=== PATIENT | male | born 1930 | race Caucasian/White ===

== ENCOUNTER 2016-04-07 10:54 | Emergency (ER) ==
[2016-04-07 11:05] VITALS: BP 121/68; TEMP 97.5; BMI 25.0
--- NOTE | 2016-04-07 12:27 | CT ---
Exam: CT thorax without contrast. Clinical indication: Chest pain after fall. TECHNIQUE: Axial unenhanced CT images of the thorax were obtained followed by coronal and sagittal reformats. There are no prior studies available for comparison. Findings: The visualized portions of the bilateral humeri are intact. The bilateral clavicles are intact. Th e bilateral scapula are intact. There is evidence of prior median sternotomy. The ribs are intact. There is no evidence of thoracic vertebral fracture. The visualized bony stru ctures are unremarkable for the patient's age. There is no evidence of pneumothorax. There is moderate underlying centrilobular emphysema. There is some respiratory motion artifact. There is some patchy ill-defined nodular opacities withi n the left lower lobe. There is a tiny left pleural effusion. There are extensive coronary artery calcifications. There are no enlarged axillary, hilar or mediastinal lymph nodes, by size criteria. There is cholelithiasis. There is a left-sided simple renal cortical cyst. The remainder of the vi sualized portions of the upper abdomen are unremarkable. Impression: 1. No acute thoracic bony injury. 2. Patchy ill-defined opacities within the left lower lobe which could represent pneumonia or aspir ation. 3. Moderate underlying centrilobular emphysema. 4. Extensive coronary artery calcifications. 5. Cholelithiasis.
--- NOTE | 2016-04-07 12:30 | CT ---
EXAM: CT lumbar spine without contrast. HISTORY: Initial presentation for back pain following a fall. COMPARISON: None available. TECHNIQUE: Multiple axial images of the lumbar spine were obtained without intravenous contrast. I mages were reformatted in the sagittal and coronal planes. FINDINGS: The normal curvature and alignment are maintained. Vertebral body heights are normal. T here is mild loss of disc height throughout the lumbar spine. Disc osteophyte formation and facet a rthropathy cause multilevel central canal stenosis, moderate at L4-5, mild-moderate L3-4 and mild el sewhere. These findings also cause multilevel neural foraminal narrowing, moderate from L3-4 to L5- S1. No fracture or subluxation is seen. No paravertebral soft tissue abnormality identified. Ather osclerotic calcifications are present. Probable left renal cortical cyst on axial image 45. Small left pleural effusion and mild left basilar consolidation are incompletely imaged IMPRESSION: 1. No fracture or subluxation. 2. Degenerative changes as described.
--- NOTE | 2016-04-07 13:42 | CT ---
EXAM: CT pelvis HISTORY: Pelvic pain, pubic level, fall. TECHNIQUE: CT pelvis without contrast. Detailed axial sections. Coronal and sagittal re-formation s. FINDINGS: No comparison CT. Bones appear demineralized. No acute fracture or joint dislocation is identified. 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 Degenerative disc and facet disea se of the lower spine is moderately severe with central and neural foraminal stenosis at L4/L5 and L 5/S1. There is a Spigelian like left-sided hernia which contains mostly abdominal fat although a tiny loop of small bowel enters the sac without evidence of strangulation. There is a small to moderate fatt y left inguinal hernia and a tiny fatty right inguinal hernia. Moderate prostate enlargement. Mode rate vascular calcifications. IMPRESSION: 1. No acute fracture or joint dislocation. 2. Bones appear demineralized. 3. Arthritic changes of the hips, sacroiliac joints and lower spine. 4. Lower abdominal hernias as described possibly of no current clinical significance.
--- NOTE | 2016-04-07 14:00 | ED.PDOC ---
General ED Provider: Dr. JESS MITCHELL Chief Complaint: Multiple Trauma Stated Complaint: fall Time Seen by Physician: 11:00 (seen w nursing staff) Information Source: Patient, Family Exam Limitations: No limitations Primary Care Provider: ESTHER LEAL Nursing and Triage Documentation Reviewed and Agree: Yes Trauma/Injury Complaint Exam - Trauma Complaint/Exam Location of Pain or Injury: Reports: Chest, Back, Other (pelvis) Mechanism of Injury: Reports: Fall Onset/Duration: frequent due to parkison disease Symptoms Are: Resolved Initial Severity: Mild Current Severity: Mild Character: Reports: Aching Aggravating: Reports: None Alleviating: Reports: None Associated Signs and Symptoms: Reports: Bruising Related History: Reports: Similar episode Penetrating Injury Risk Factors: Reports: None Related Surgical History: Reports: None Nexus Low Risk Criteria: No post-midline CS tender, No evidence of intoxicat., No Altered LOC, No focal neuro deficit, No distracting injuries Trauma Findings: Absent: Racoon eyes, Hemotympanum, Nasal deformity, Dental tenderness, Dental injury, Dental malocclusion, Neck tenderness, Neck spasm, SubQ Air, Crepitus, Airway obstructed, Labored respirations, Decreased breath sounds, Muffled heart sounds, Weak pulses, Absent pulses, Pelvic tenderness, Pelvic instability Review of Systems - Review Of Systems Constitutional: Reports: No symptoms Eyes: Reports: No symptoms Ears, Nose, Mouth, Throat: Reports: No symptoms Respiratory: Reports: No symptoms Cardiac: Reports: No symptoms GI: Reports: No symptoms : Reports: No symptoms Musculoskeletal: Reports: No symptoms Skin: Reports: No symptoms Neurological: Reports: No symptoms Endocrine: Reports: No symptoms Hematologic/Lymphatic: Reports: No symptoms All Other Systems: Reviewed and Negative Past Medical History - Past Medical History Previously Healthy: No Endocrine: Reports: DM 2 Cardiovascular: Reports: Hypertension, CHF, A-Fib Respiratory: Reports: COPD Hematological: Reports: None Gastrointestinal: Reports: None Genitourinary: Reports: None Neuro/Psych: Reports: None, Parkinson's Musculoskeletal: Reports: None Cancer: Reports: Colon - Surgical History General Surgical History: Reports: Unknown - Family History Family History: Reports: Unknown - Social History Smoking Status: Former smoker Hx Substance Use: No Alcohol Screening: None Physical Exam - Physical Exam Appearance: Well-appearing, No pain distress, Well-nourished Eyes: DONALD, EOMI, Conjunctiva clear ENT: Ears normal, Nose normal, Oropharynx normal Respiratory: Airway patent, Breath sounds clear, Breath sounds equal, Respirations nonlabored Cardiovascular: RRR, Pulses normal, No rub, No murmur GI/: Soft, Nontender, No masses, Bowel sounds normal, No Organomegaly Musculoskeletal: Normal strength, ROM intact, No edema, No calf tenderness Skin: Warm, Dry, Normal color Neurological: Sensation intact, Motor intact, Reflexes intact, Cranial nerves intact, Alert, Oriented Psychiatric: Affect appropriate, Mood appropriate Critical Care Note - Critical Care Note Total Time (mins): 0 Course - Course Hematology/Chemistry: 04/07/16 14:19 Orders, Labs, Meds: Lab Review 04/07/16 14:19 WBC 8.04 RBC 4.00 L Hgb 11.7 L Hct 36.9 L MCV 92.3 MCH 29.3 MCHC 31.7 L RDW Coeff of Lorrie 14.0 Plt Count 234 Immature Gran % (Auto) 0.9 Neut % (Auto) 68.6 Lymph % (Auto) 21.6 Kingfisher % (Auto) 8.3 Eos % (Auto) 0.2 Baso % (Auto) 0.4 Immature Gran # (Auto) 0.1 Neut # 5.5 Lymph # 1.7 Kingfisher # 0.7 Eos # 0.0 Baso # 0.0 Lactic Acid 8.1 Orders Category Date Time Status EKG-(ED ONLY) Stat CARDIO 04/07/16 14:03 Completed BLOOD CULTURE Stat LAB 04/07/16 14:19 Received CBC W/ AUTO DIFF Stat LAB 04/07/16 14:19 Completed COMPREHENSIVE METABOLIC PANEL Stat LAB 04/07/16 14:19 Received CREATINE KINASE Stat LAB 04/07/16 14:19 Received LACTIC ACID Stat LAB 04/07/16 14:19 Completed TROPONIN I Stat LAB 04/07/16 14:19 Received Ceftriaxone Sodium [Rocephin] MEDS 04/07/16 15:07 Stat 1 gm IM ONCE STA Lidocaine HCl/Pf [Lidocaine 1 % Amp 5 ml (Sutures)] MEDS 04/07/16 15:07 Stat 2.1 ml IM ONCE STA CT CHEST W/O CONTRAST Stat RADS 04/07/16 11:[address] LUMBAR SPINE W/O CONTRAST Stat RADS 04/07/16 11:[address] PELVIS W/O CONTRAST Stat RADS 04/07/16 12:39 Completed Medications Discontinued Medications Generic Name Dose Route Start Last Admin Trade Name Freq PRN Reason Stop Dose Admin Ceftriaxone Sodium 1 gm 04/07/16 15:07 Rocephin IM 04/07/16 15:08 ONCE STA Lidocaine HCl 2.1 ml 04/07/16 15:07 Lidocaine 1 % Amp 5 Ml (Sutures) IM 04/07/16 15:08 ONCE STA Vital Signs: Temp Pulse Resp BP Pulse Ox 04/07/16 10:54 97.5 F L 58 L 20 121/68 91 L Departure - Departure Time of Disposition: 14:00 Disposition: HOME SELF-CARE Discharge Problem: Parkinson disease, Pneumonia Fall Qualifiers: Encounter type: initial encounter Qualifier Code: (W19.XXXA) Unspecified fall, initial encounter Instructions: Parkinson Disease (ED) Condition: Good Pt referred to PMD for follow-up: No Additional Instructions: Please call your Family Physician as soon as possible to schedule a follow-up appointment. Prescriptions: Hydrocodone/Acetaminophen [[place] 5-325 Tablet] 1 each PO Q6HR PRN #30 tablet PRN Reason: PAIN Amoxicillin/Potassium Clav [Augmentin 875-125 mg Tab] 1 tab PO Q12HR #14 tablet Allergies/Adverse Reactions: Allergies No Known Allergies Allergy (Unverified 04/07/16 11:06) Home Medications: Ambulatory Orders Amiodarone HCl 200 mg PO DAILY 04/07/16 Amoxicillin/Potassium Clav [Augmentin 875-125 mg Tab] 1 tab PO Q12HR #14 tablet 04/07/16 Apixaban [Eliquis] 2.5 mg PO BID 04/07/16 Atorvastatin Calcium [Lipitor] 10 mg PO DAILY 04/07/16 Calcium Carbonate/Vitamin D3 [Calcium 600 + Vit D 400 Tablet] 1 each PO DAILY Carbidopa/Levodopa [Sinemet 25-100 mg Tablet] 1 each PO TID 04/07/16 Ferrous Sulfate 325 mg PO BID 04/07/16 Glimepiride [Amaryl] 2 mg PO DAILY 04/07/16 Hydrocodone/Acetaminophen [[place] 5-325 Tablet] 1 each PO Q6HR PRN #30 tablet Lisinopril [Zestril] 5 mg PO DAILY 04/07/16 Magnesium Oxide [Magnesium] 400 mg PO DAILY 04/07/16 Metformin HCl [Metformin HCl ER] 500 mg PO BID 04/07/16 Metoprolol Tartrate [Lopressor] 25 mg PO DAILY 04/07/16 Pantoprazole Sodium 40 mg PO DAILY 04/07/16 Ropinirole HCl [Requip] 0.25 mg PO BEDTIME 04/07/16 Sitagliptin Phosphate [Januvia] 100 mg PO DAILY 04/07/16 Tamsulosin HCl [Flomax] 0.4 mg PO DAILY 04/07/16 Tiotropium [place] [Spiriva] 1 cap IH DAILY 04/07/16 Triamcinolone Acetonide [Triamcinolone Acetonide 0.025% Cream] 15 gm TP DIRECTED 04/07/16
[2016-04-07 14:30] LABS: BASOPHILS % (AUTO) 0.4 % (0.0-3.0); EOSINOPHILS % (AUTO) 0.2 % (0.0-7.0); HEMATOCRIT 36.9 % (42.0-52.0); HEMOGLOBIN 11.7 g/dl (14.0-18.0); IMMATURE GRANULOCYTE % (AUTO) 0.9 % (0.0-5.0); LYMPHOCYTES # (AUTO) 1.7 K/uL (0.60-3.4); LYMPHOCYTES % (AUTO) 21.6 (10.0-50.0); MEAN CORPUSCULAR HEMOGLOBIN 29.3 pg (27.0-31.0); MEAN CORPUSCULAR HGB CONC 31.7 (31.8-35.4); MEAN CORPUSCULAR VOLUME 92.3 fl (80.0-94.0); MONOCYTES # (AUTO) 0.7 K/uL (0.4-2.0); MONOCYTES % (AUTO) 8.3 (0-10); NEUTROPHILS # (AUTO) 5.5 K/ul (2.0-6.9); NEUTROPHILS % (AUTO) 68.6; PLATELET COUNT 234 10^3/uL (140-440); WHITE BLOOD COUNT 8.04 K/ul (4.2-10.2)
[2016-04-07 14:52] LABS: ALANINE AMINOTRANSFERASE 13 U/L (12-78); ALBUMIN 3.2 g/dL (3.4-5.0); ALBUMIN/GLOBULIN RATIO 0.82; ALKALINE PHOSPHATASE 90 U/L (56-119); ANION GAP 11.9; ASPARTATE AMINO TRANSFERASE 11 U/L (15-37); BILIRUBIN,TOTAL 1.32 mg/dL (0.00-1.20); BLOOD UREA NITROGEN 16 mg/dL (7-18); CALCIUM 8.9 mg/dL (8.2-10.2); CARBON DIOXIDE 27 mmol/L (23-31); CHLORIDE 104 mmol/L (98-107); CREATINE KINASE 26 U/L; CREATININE 1.25 mg/dL (0.60-1.10); GLUCOSE 148 mg/dL (82-115); POTASSIUM 3.9 mmol/L (3.5-5.1); SODIUM 139 mmol/L (136-145); TOTAL PROTEIN 7.1 g/dL (5.8-8.1)
[2016-04-07] MEDS ORDERED: ROCEPHIN IM STA (15:07)
[2016-04-07] MEDS ORDERED: LIDOCAINE 1 % AMP 5 ML (SUTURES) IM STA (15:07)
== END 2016-04-07 16:08 | disposition home or self-care (01) ==
LOC: ED 10:54
DX: J18.9 Pneumonia, unspecified organism (principal); G20 Parkinson's disease; S29.9XXA Unspecified injury of thorax, initial encounter; S39.92XA Unspecified injury of lower back, initial encounter; S39.93XA Unspecified injury of pelvis, initial encounter; E11.9 Type 2 diabetes mellitus without complications; I10 Essential (primary) hypertension; W19.XXXA Unspecified fall, initial encounter; Z79.899 Other long term (current) drug therapy
CPT/HCPCS: 36415; 80053; 82550; 83605; 84484; 85025; 87040; 93005; 93010; 96372; 99283

== ENCOUNTER 2016-04-13 16:48 | Inpatient (IN) ==
[2016-04-13 17:56] VITALS: BMI 24.9
[2016-04-13 19:04] LABS: BASOPHILS % (AUTO) 0.4 % (0.0-3.0); EOSINOPHILS # (AUTO) 0.1 K/ul (0.0-0.7); EOSINOPHILS % (AUTO) 0.5 % (0.0-7.0); HEMATOCRIT 39.1 % (42.0-52.0); HEMOGLOBIN 12.4 g/dl (14.0-18.0); IMMATURE GRANULOCYTE % (AUTO) 1.1 % (0.0-5.0); LYMPHOCYTES # (AUTO) 1.7 K/uL (0.60-3.4); LYMPHOCYTES % (AUTO) 18.8 (10.0-50.0); MEAN CORPUSCULAR HGB CONC 31.7 (31.8-35.4); MEAN CORPUSCULAR VOLUME 91.4 fl (80.0-94.0); MONOCYTES # (AUTO) 0.8 K/uL (0.4-2.0); MONOCYTES % (AUTO) 8.6 (0-10); NEUTROPHILS # (AUTO) 6.5 K/ul (2.0-6.9); NEUTROPHILS % (AUTO) 70.6; PLATELET COUNT 270 10^3/uL (140-440); RED BLOOD COUNT 4.28 10^6/ul (4.70-6.10); WHITE BLOOD COUNT 9.18 K/ul (4.2-10.2)
--- NOTE | 2016-04-13 19:05 | CT ---
EXAM: CT of the chest without contrast History: Cough. Comparison: Chest CT 04/07/2016 Technique: Multiplanar CT images through the thorax were obtained following administration of IV co ntrast Findings: Heart is mildly enlarged. Coronary artery calcifications. The the ectatic thoracic aort a. Atherosclerotic vascular calcifications of the thoracic aorta. No pathologically enlarged axill alfonzo lymph nodes. No pathologically enlarged mediastinal lymph nodes. Evaluation for hilar lymph no andi is limited due to the lack of contrast administration. There is debris within the bilateral tawanna n stem bronchi and greater on the left. The debris on the left extends into the lower lobe and ling ular bronchial branches. Stable to slightly worsening micronodular infiltrate within the left lower lobe and lingula. Small left pleural effusion also has slightly increased in size. Emphysema again noted. No pneumothorax. Within the visualized upper abdomen, gastric fundal diverticulum again noted. Cholelithiasis. Visu alized osseous structures are unchanged with no acute osseous abnormalities identified. Sternotomy wires. Impression: 1. Stable to slightly worsening micronodular infiltrate within the left lower lobe and lingula. Fo llow-up recommended to document resolution and exclude any underlying neoplastic etiology. 2. There is debris / mucus plugging within the bilateral mainstem bronchi and greater on the left. Debris on the left extends into the lower lobe and lingular bronchial tree branches. 3. Emphysema. 4. Mild cardiomegaly and coronary artery disease. 5. Cholelithiasis. 6. Small left pleural effusion is also slightly increasing.
[2016-04-13 19:20] LABS: ALANINE AMINOTRANSFERASE < 6 U/L (12-78); ALBUMIN 3.2 g/dL (3.4-5.0); ALBUMIN/GLOBULIN RATIO 0.84; ALKALINE PHOSPHATASE 103 U/L (56-119); ASPARTATE AMINO TRANSFERASE 11 U/L (15-37); BILIRUBIN,TOTAL 1.35 mg/dL (0.00-1.20); BLOOD UREA NITROGEN 14 mg/dL (7-18); BUN/CREATININE RATIO 11.96; CALCIUM 8.9 mg/dL (8.2-10.2); CARBON DIOXIDE 27 mmol/L (23-31); CHLORIDE 103 mmol/L (98-107); CHOL/HDL RATIO 3.4 (4.5-6.4); CHOLESTEROL 101 mg/dL (0-200); CREATININE 1.17 mg/dL (0.60-1.10); GLUCOSE 104 mg/dL (82-115); HDL CHOLESTEROL 30 mg/dL (35-60); SODIUM 140 mmol/L (136-145); TRIGLYCERIDES 85 mg/dL (30-150); VLDL CHOLESTEROL 17 mg/dL (2-30)
[2016-04-13] MEDS ORDERED: TRIAMCINOLONE ACETONIDE TP SCH (20:00)
[2016-04-13 20:13] LABS: ABG BASE EXCESS 1 (-2.0-2.0); ABG HCO3 25.9 (22.0-26.0); ABG PCO2 41.6 mmHg (35-45); ABG PH 7.402 (7.35-7.45); ABG TCO2 27 (22.0-28.0)
[2016-04-13] MEDS ORDERED: ZITHROMAX 500 MG in SODIUM CHLORIDE 250 ML IV SCH (20:30)
[2016-04-13] MEDS ORDERED: POTASSIUM CHLORIDE 20 MEQ VIAL-ADDITIVE ONLY 20 MEQ, INFUVITE ADULT 10 ML in SODIUM CHL... IV SCH (20:30)
[2016-04-13] MEDS ORDERED: ROCEPHIN 1 GM in SODIUM CHLORIDE 50 ML IV SCH (20:30)
[2016-04-13] MEDS ORDERED: NON-FORMULARY MEDICATION (Apixaban [Eliquis] 2.5 MG) PO SCH (21:00)
[2016-04-13] MEDS ORDERED: NON-FORMULARY MEDICATION (Metformin Hcl [Metformin Hcl Er] 500 MG) PO SCH ×22 (21:00)
[2016-04-13] MEDS ORDERED: NON-FORMULARY MEDICATION (Ferrous Sulfate [Ferrous Sulfate] 325 MG) PO SCH ×22 (21:00)
[2016-04-13 21:33] LABS: BILIRUBIN,URINE Negative (NEGATIVE); KETONES,URINE Negative (NEGATIVE); LEUKOCYTE ESTERASE ,URINE Negative (NEGATIVE); NITRITE,URINE Negative (NEGATIVE); PROTEIN,URINE Negative (NEGATIVE); URINE, BLOOD Negative (NEGATIVE)
[2016-04-13 21:34] LABS: ADD URINE MICROSCOPIC NO
[2016-04-13] MEDS ORDERED: FERROUS SULFATE ONE (21:50)
[2016-04-13] MEDS ORDERED: GLUCOPHAGE ONE (21:50)
[2016-04-13] MEDS ORDERED: ROCEPHIN ONE (21:50)
[2016-04-13] MEDS ORDERED: ELIQUIS ONE (21:50)
[2016-04-13] MEDS ORDERED: INFUVITE ADULT IV ONE (21:51)
[2016-04-13] MEDS ORDERED: POTASSIUM CHLORIDE 20 MEQ VIAL-ADDITIVE ONLY IV ONE (21:52)
[2016-04-13] MEDS ORDERED: LASIX IVP STA (22:33)
[2016-04-13] MEDS: OXYCODONE PO PRN (22:44)
[2016-04-13] MEDS: POTASSIUM CHLORIDE 20 MEQ VIAL-ADDITIVE ONLY 20 MEQ, INFUVITE ADULT 10 ML in SODIUM CHL... IV SCH (23:41)
[2016-04-14] MEDS: PROTONIX PO SCH (08:52)
[2016-04-14] MEDS: CORDARONE PO SCH (08:52)
[2016-04-14] MEDS: FERROUS SULFATE PO SCH ×2 (08:52→20:29)
[2016-04-14] MEDS: LOPRESSOR PO SCH (08:52)
[2016-04-14] MEDS: FLOMAX PO SCH (08:53)
[2016-04-14] MEDS: SINEMET 25-100 PO SCH ×4 (08:53→23:22)
[2016-04-14] MEDS: LIPITOR PO SCH (08:53)
[2016-04-14] MEDS: JANUVIA PO SCH (08:53)
[2016-04-14] MEDS: MAG-OX PO SCH (08:53)
[2016-04-14] MEDS: ELIQUIS PO SCH ×2 (08:54→20:28)
[2016-04-14] MEDS ORDERED: ZESTRIL PO SCH (09:00)
[2016-04-14] MEDS ORDERED: LOPRESSOR PO SCH (09:00)
[2016-04-14] MEDS ORDERED: GLUCOPHAGE XR 500MG PO SCH (09:00)
[2016-04-14] MEDS ORDERED: JANUVIA PO SCH (09:00)
[2016-04-14] MEDS ORDERED: AMARYL PO SCH (09:00)
--- NOTE | 2016-04-14 09:23 | HP ---
CHIEF COMPLAINT: Shortness of breath, cough, weakness, frequent falls and cognitive dysfunction. SOURCE OF HISTORY: HISTORY OF PRESENT ILLNESS: The patient was seen at the office for the first time today because of coughing , increasing weakness, recurrent falls and recent pneumonia 04/07/16. The patient's examination: He follows verbal commands and not in acute distress but have productive gurgling cough. Lungs has rales in both lung thakkar. Heart is audible with good tones somewhat irregular. Blood sugar at the office by Accu- check was elevated because of cough and history of pneumonia, elevated blood sugar and cognitive dysfunction with recurrent falls probably from Parkinson's disease. This patient is admitted to the hospital for further work up and treatment. PAST PERSONAL HISTORY: Hypertension Diabetes Anemia Micro-gen infarction Congestive heart failure Atrial fibrillation Coronary artery disease, statue post CABG COPD Prostate Carcinoma Parkinson's disease Ureteral dilation Esophageal stricture dilation Migraines Anxiety Ureteral stent x2 FAMILY HISTORY: Brother had Leukemia Father had Prostatic carcinoma Mother Cardiac disease, lung carcinoma and diabetes. SOCIAL HISTORY: The patient is and resides with his . He no longer smokes. No alcoholic beverages. MEDICATIONS: Spiriva one daily Amaryl 2mg daily Ferrous Sulfate 325mg twice a day Lipitor 10mg daily Metoprolol Tartrate 25mg daily Protonix 40mg daily Flomax 0.4mg daily Januvia 100mg PO daily Ropinirole 0.25mg at bedtime Metformin ER 500mg twice a day Magnesium Oxide 400mg daily Sinemet 25-100mg one three times a day Calcium Carbonate/ Vitamin D3 600/400 one daily Amiodarone 200mg daily Apixaban 2.5mg PO twice a day Triamcinolone acetonide 0.025% cream application as directed Hydrocodone/APAP 5-325mg one Q 6 hours PRN Augment 875 prescribed 04/07/16 at the emergency room Q 12 hours x one week Lisinopril 5mg daily ALLERGIES: No known drug allergies REVIEW OF SYSTEMS: CONSTITUTIONAL: The patient is alert and hard of hearing. He follows verbal commands. No fever no chills with some fatigue and had lost weight. GEODETIC COMPUTATOR: The patient has cognitive disorder and had been falling probably because Parkinson's disease. denies any syncopal episode or seizure disorder. VISUAL: He denies any double vision, blurred vision or loss of vision that is transient. AUDITORY: The patient is very hard of hearing and had to shout or increase your volume in order for her him to hear you. No tinnitus. No pain or drainage. RESPIRATORY: The patient had been coughing and persistent to cough. He does have some shortness of breath with exertion. The patient had what appeared to be a pneumonic processes about seven days ago treated with Rocephin and Augmentin. CARDIOVASCULAR: No chest pain. GASTROINTESTINAL: The patient's appetite had been decreased and had lost a significant amount of weight. GENITOURINARY: The patient does have some frequency of urination but denies any pain. MUSCULOSKELETAL: The patient fell 04/07/16 and was in the emergency room because of lumbar pain as well as pelvic pain. The patient had a CT scan of the chest 04/07/[address] of the pelvic bones and Lumbar spine. ENDOCRINE: Negative. INTEGUMENT: Denies any rash or pleuritis. HEMATOLOGIC: No history of prolonged bleeding PSYCHIATRIC: Affect is down. The patient does follow verbal commands. He doesn' t answer questions literally. PHYSICAL EXAMINATION: GENERAL: The patient is a 85 year old male is seen for the first time in my service because of cough that is persistent. He was diagnosed with pneumonia 7 days, cognitive dysfunction, Parkinson's disease, some shortness of breath and elevated blood sugar. The patient also had coronary artery disease and cardiac arrhythmias. VITAL SIGNS: Temperature 97.9, pulse 60, blood pressure 154/62 left and 152/60 right, respiratory rate 20 and pulse ox 87%. He is 5'6", 154 pounds and 9.6 oz. GENERAL APPEARANCE: Is that of one who is chronically ill. HEAD: Unremarkable FACE: Symmetrical and equal with facial weakness. EYES: Pupils equal/reactive to light. About 3mm in size. Conjunctivae somewhat pale. Sclerae not icteric. MOUTH: Dentures both upper and lower. THROAT: No inflammation, tumors or exudate. NECK: No masses. No bruit. No tenderness. No rigidity. CHEST: Symmetrical and equal with a mid-sternotomy scar. LUNGS: Breaths sounds are diminished in both lung thakkar with course rales. HEART: Audible and irregular with good tones. No murmurs. ABDOMEN: Flat, soft with no remarkable tenderness. No guarding, Bowel sounds are active. No masses palpable. EXTERNAL GENITALIA: Not examined RECTAL: Not done LOWER EXTREMITIES: Symmetrical and equal Not pedal pulses will be dictated on the progress notes. UPPER EXTREMITIES: Symmetrical and equal ASSESSMENT: 1. Pneumonitis, rule out aspiration pneumonia 2. Persistent cough 3. COPD by history 4. History of recurrent falls 5. History of coronary artery disease, status post bypass 6. History of myocardial infarction 7. History of congestive heart failure 8. History of atrial fibrillation on medication 9. History of diabetes mellitus 10.History of prostatic carcinoma 11.History of ureteral stone x2 12.History of Parkinson's disease, on medication 13.History of Restless leg syndrome 14.History of ureteral dilatation 15.History of esophageal stricture with dilatation MTDD
[2016-04-14] MEDS: OXYCODONE PO PRN (12:16)
[2016-04-14] MEDS: SPIRIVA IH SCH (12:59)
[2016-04-14] MEDS: MUCINEX PO SCH (20:29)
[2016-04-14] MEDS: ROCEPHIN 1 GM in SODIUM CHLORIDE 100 ML IV SCH (20:30)
--- NOTE | 2016-04-14 20:31 | CT ---
EXAM: CT BRAIN HISTORY: Increasing confusion TECHNIQUE: CT brain without intravenous contrast. 5-mm axial sections with Reformations. COMPARISON: None FINDINGS: There is generalized age-related atrophy. Moderately severe chronic microvascular ischemic change i s suggested. Brain otherwise is unremarkable without distinct evidence of hemorrhage or large vessel distribution recent ischemic infarction. There is no suggestion of acute hydrocephalus or subdural fluid collection. No mass or mass effect. Cranium is within normal limits. Mastoid air cells are aerated. The visualized paranasal sinuses are clear. IMPRESSION: Significant involutional changes. No obvious acute intracranial process.
[2016-04-14] MEDS ORDERED: ZITHROMAX 500 MG in SODIUM CHLORIDE 250 ML IV SCH (21:00)
[2016-04-14] MEDS: VITAMIN B-12 IM SCH (22:28)
[2016-04-14] MEDS ORDERED: COZAAR ONE (23:32)
[2016-04-14] MEDS: COZAAR PO SCH (23:34)
[2016-04-15] MEDS ORDERED: INFUVITE ADULT IV ONE (00:32)
[2016-04-15] MEDS ORDERED: POTASSIUM CHLORIDE 20 MEQ VIAL-ADDITIVE ONLY IV ONE (00:34)
[2016-04-15] MEDS: POTASSIUM CHLORIDE 20 MEQ VIAL-ADDITIVE ONLY 20 MEQ, INFUVITE ADULT 10 ML in SODIUM CHL... IV SCH (01:38)
[2016-04-15 05:18] LABS: BASOPHILS % (AUTO) 0.4 % (0.0-3.0); EOSINOPHILS % (AUTO) 0.1 % (0.0-7.0); HEMATOCRIT 37.3 % (42.0-52.0); HEMOGLOBIN 11.8 g/dl (14.0-18.0); IMMATURE GRANULOCYTE % (AUTO) 0.9 % (0.0-5.0); LYMPHOCYTES # (AUTO) 1.6 K/uL (0.60-3.4); LYMPHOCYTES % (AUTO) 14.6 (10.0-50.0); MEAN CORPUSCULAR HEMOGLOBIN 28.9 pg (27.0-31.0); MEAN CORPUSCULAR HGB CONC 31.6 (31.8-35.4); MEAN CORPUSCULAR VOLUME 91.2 fl (80.0-94.0); MONOCYTES # (AUTO) 0.8 K/uL (0.4-2.0); MONOCYTES % (AUTO) 7.4 (0-10); NEUTROPHILS # (AUTO) 8.1 K/ul (2.0-6.9); NEUTROPHILS % (AUTO) 76.6; PLATELET COUNT 289 10^3/uL (140-440); RED BLOOD COUNT 4.09 10^6/ul (4.70-6.10); WHITE BLOOD COUNT 10.62 K/ul (4.2-10.2)
[2016-04-15 05:45] LABS: ALANINE AMINOTRANSFERASE < 6 U/L (12-78); ALBUMIN 3.1 g/dL (3.4-5.0); ALBUMIN/GLOBULIN RATIO 0.89; ALKALINE PHOSPHATASE 95 U/L (56-119); ANION GAP 13.2; ASPARTATE AMINO TRANSFERASE 12 U/L (15-37); BILIRUBIN,TOTAL 1.52 mg/dL (0.00-1.20); BLOOD UREA NITROGEN 14 mg/dL (7-18); BUN/CREATININE RATIO 13.33; CALCIUM 8.9 mg/dL (8.2-10.2); CARBON DIOXIDE 28 mmol/L (23-31); CHLORIDE 100 mmol/L (98-107); CREATININE 1.05 mg/dL (0.60-1.10); GLUCOSE 61 mg/dL (82-115); POTASSIUM 4.2 mmol/L (3.5-5.1); SODIUM 137 mmol/L (136-145); TOTAL PROTEIN 6.6 g/dL (5.8-8.1)
[2016-04-15] MEDS: MUCINEX PO SCH ×2 (08:07→21:18)
[2016-04-15] MEDS: ELIQUIS PO SCH ×2 (08:07→21:18)
[2016-04-15] MEDS: SPIRIVA IH SCH (08:07)
[2016-04-15] MEDS: PROTONIX PO SCH (08:08)
[2016-04-15] MEDS: JANUVIA PO SCH (08:08)
[2016-04-15] MEDS: VITAMIN B-12 IM SCH (08:08)
[2016-04-15] MEDS: FLOMAX PO SCH (08:08)
[2016-04-15] MEDS: LIPITOR PO SCH (08:09)
[2016-04-15] MEDS: FERROUS SULFATE PO SCH ×2 (08:09→21:17)
[2016-04-15] MEDS: COZAAR PO SCH (08:09)
[2016-04-15] MEDS: SINEMET 25-100 PO SCH ×3 (08:09→21:18)
[2016-04-15] MEDS: LOPRESSOR PO SCH (08:09)
[2016-04-15] MEDS: CORDARONE PO SCH (08:09)
[2016-04-15] MEDS: MAG-OX PO SCH (08:10)
--- NOTE | 2016-04-15 09:37 | PN ---
DATE OF VISIT: 04/14/16 This patient was admitted yesterday. The patient's CT scan did show mucus plugs on both main bronchus right and left side. I had asked the respiratory therapy to do an initial tracheal suction. This patient had a gurgling sound when I examined him at the office. He also had a previous pneumonia that was treated on an outpatient basis. Chest x-ray showed some worsening of the micronodular infiltrate within the left lower lobe and lingula. This patient is receiving Rocephin 1 gram IV daily and Zithromax 500 mg daily. VITAL SIGNS: Today at 2 p.m. showed a temperature 96.4, pulse 60, blood pressure 139/59, respiratory rate 20, oxygen saturation 90 at room air. The patient is alert and responsive and did answer questions with me. He, however, could not remember how old he is. LUNGS: Breath sounds are still diminished with less rales. HEART: Audible and irregular. Cardiology consultation was requested. The Ropinirole was discontinued. His was asking for a CT scan of the abdomen and pelvis with contrast. He had a previous colonoscopy by Dr. Jhaveri some seven years ago and had a polyp removed. He also had a recent endoscopy by Dr. Jhaveri. This patient will be referred back to Dr. Jhaveri. We had a dysphagia study scheduled and hopefully it will be done soon. His TSH is normal. His B12 is normal. I will still give him B12 injections. His BNP was elevated 721 and his IV last night was reduced to 1,000 cc per 24 hours and was given Lasix 20 mg. He will again be given Lasix today at 20 mg, plus a B12 injection. The mentioned that the family had a strong history of malignancy and was tested for markers by Dr. Chaudhari and they were all positive. I don't know what markers were tested. I would look into this and see if I can find those markers. I did find a CEA of 4.9. Normal is 0 to 4.7, but this patient had a history of smoking. That maybe still within normal limits for him. PSA 9.9024. The alkaline phosphatase was high on 07/03/15 136. On the alkaline phosphatase is now 103. His urine back in July 022015 showed 1+ blood and 12-20 RBC. This patient is referred to Physical Therapy for evaluation and also rehabilitation for strengthening if possible. I did mention to the patient's that [facility] will do rehab and will pick him up from home and bring him home after the rehab or after the therapy. She intended for [facility] to [facility], however she wanted to be with him in the [facility]. Her entrance for the [facility] was for rehabilitation to make him stronger. I did tell him that maybe the [facility], [facility] can give him rehab three times a week or [place] can give him on an out patient or [facility] if she would bring him over there. SPENSER
[2016-04-15] MEDS: DECADRON 4 MG/ML SDV IM SCH (10:02)
--- NOTE | 2016-04-15 10:44 | RS.MODBRM ---
Subjective Number of treatment sessions: 1 Date of Evaluation: 04/15/16 Date of Onset/Injury/Change in Status: 04/13/16 Treatment Diagnosis: SOB, weakness, pneumonia Current Level of Function: This is an 85 year old male with a hx of Parkinson's disease and recent episode of pneunomia. Pt has no hx of swallowing disorders, as reported from . However pt reports food sticking in lower esophagus. Pt lives at home with his , where he was independent with all PO intake. Current Diet: regular diet texture with thin liquids. Current Subjective/complaints:: Pt reports food sticking in lower esophagus, which makes him feel "choked." reports pt with slow rate of intake and prolonged meal times. Medical History Comments:: PD, HTN, DM, anemia, CHF, a-fib, CAD s/p CABG, COPD, esopheal stricture dialation multiple times-last surgery approximately two years ago. Hx Home Medications: Pt took medications whole. crushed medications as needed. Patient's Goals: Pt wants to have meat. Food Presented Thin Liquid: cup (Pt aspirated during swallow, with two consecutive swallows. No cough response with aspiration.) Hunter Liquid: cup (Pt cleared liquid with flash penetration, residue in laryngeal vestibule. Residue cleared with multiple swallows. No aspiration with throat clear.) Ground Meat: 1/2 teaspoon (Pt with prolonged mastication, poor bolus manipulation, moderate lingual residue post initial swallow. Second swallow pt cleared residue. No aspiration noted. Liquid wash presented with nectar thick, no aspiration noted.) Oral Phase - Oral Phase Labial Closure: Mild Impairment Bolus Formation: Moderate Impairment Mastication: Mild Impairment Lingual Movement: Mild Impairment (Mild coordination, mild-moderate with base of tongue retraction. CARDIAC REHABILITATION SPECIALIST noted lingual pumping 2x.) A/P Propulsion: Mild Impairment Premature Vallecular Pooling: Coating Oral Residue: Mild Pharyngeal Phase Pharyngeal Response: Moderate Impairment (Pt with no cough or sensory awareness to aspiration.) Base of Tongue: Moderate Impairment (Lingual pumping with regular diet texture.) Epiglottic Movement: Mild Impairment Laryngeal Excursion: Moderate Impairment (Limited movement) Vallecular Residue: Mild Pyriform Residue: Coating Summary and Recommendations - Recommendations PO Diet: Hunter-Thick Liquids Comments:: Pt to have regular diet texture and nectar thick liquids via open cup. Straw not assessed with pt, but pt prefers cup. effortful swallow, throat clear, and multiple swallows cleared residue in valleculae. Minimal residue in vestibule maddox, which pt is at risk to aspirate with entire meal. Pt had no cough response to aspiration episode. Further Therapy Indicated?: Yes Functional Reporting G Codes: Swallowing. Current CK Goal CK Severity Impairment Rationale: Pt on nectar thick liquids and aspirates thin liquids. Short Term Goals Problem: Swallowing Goal #1: Pt to complete lingual exercises with 80% acc. Goal to be met by: 04/22/16 Problem: Swallowing Goal #2: Pt to utilize compensatory swallow strategies with 90% acc. Goal to be met by: 04/22/16 Problem: Swallowing Goal #3: Pt to complete laryngeal exercises with 80% acc. Goal to be met by: 04/22/16 Assisted Goals Problem: Swallowing Goal #1: Pt to safely consume nectar thick liquids with swallow strategies Goal to be met by: 04/24/16 Problem: Swallowing Goal #2: Pt to tolerate regular diet texture with swallow strategies Goal to be met by: 04/24/16 Problem: Swallowing Goal #3: Pt to consume PO intake without overt s/s of aspiration Goal to be met by: 04/24/16 Plan Duration of Treatment: 1 Week Frequency of Treatment: 2-3x a week Anticipated Discharge Destination: Home
--- NOTE | 2016-04-15 11:31 | DI ---
EXAM: Fluoroscopic dysphasia study HISTORY: Difficulty swallowing. COMPARISON: None FINDINGS: Real time fluoroscopic evaluation was performed by Dr. Eitan Sotelo with speech patholog y. Multiple consistencies were administered to patient and swallow evaluation was performed. Patie nt aspirated with thin liquids. Additional consistencies were provided without additional aspiratio n. IMPRESSION: Aspiration with thin liquids. For full details please see note of speech pathology.
[2016-04-15] MEDS: LASIX IVP SCH (12:17)
--- NOTE | 2016-04-15 13:38 | PCM.CONS ---
CONSULTING PROVIDER: Dr. NIC GARCIA ATTENDING PROVIDER: Dr. MERLENE [facility] DATE OF SERVICE: 04/15/16 - CONSULTATION FOLLOWUP SUBJECTIVE: This 85 year old WHITE/ M was hospitalized 04/13/16. The patient was admitted with pneumonia which is being treated with antibiotics and nebs. The patient seems to be doing better with the present management. Consultation is requested for abnormal EKG. The patient has atrial fibrillation. The is present in the room. REVIEW OF SYSTEMS: CONSTITUTIONAL: No night sweats. No fatigue, malaise, lethargy. No fever or chills. HEENT: Eyes: No visual changes. No eye pain. No eye discharge. ENT: No runny nose. No epistaxis. No sinus pain. No odynophagia. No congestion. RESPIRATORY: Cough and congestion. No hemoptysis. CARDIOVASCULAR: No angina symptoms. No CHF symptoms. No atypical chest pain for CAD. No palpitations. No shortness of breath. GASTROINTESTINAL: No abdominal pain. No nausea or vomiting. No diarrhea or constipation. No hematemesis. No hematochezia. GENITOURINARY: No urgency. No frequency. No dysuria. No hematuria. No obstructive symptoms. No discharge. No pain. No significant abnormal bleeding. MUSCULOSKELETAL: No musculoskeletal pain; no joint swelling. NEUROLOGICAL: Awake, oriented to person- spouse. No headache. No neck pain. No syncope. No seizures. No dizziness. PSYCHIATRIC: Not anxious. No depression. No suicidal thoughts. No homicidal thoughts. SKIN: No rash. No lesions. No wounds. ENDOCRINE: No unexplained weight loss. No weight gain. HEMATOLOGIC/LYMPHATIC: No anemia. No purpura. No petechiae. No prolonged or excessive bleeding. No palpable lymph nodes. PHYSICAL EXAMINATION: GENERAL: The patient is awake, oriented to spouse, lying in bed in no distress. VITAL SIGNS: Temperature 97.1 F, Pulse 54, Respiratory Rate 20, BP 132/66, Pulse Ox 95% HEENT: Head normocephalic, atraumatic. Eyes: Extraocular muscles are intact. Pupils are equal, round and reactive to light and accommodation. Ears: No lesions. Nose appeared normal. Throat: No exudate or erythema. NECK: Supple. No JVD, no carotid bruit. No lymphadenopathy or thyromegaly. LUNGS: Decreased breath sounds. Clear to auscultation. Percussion note normal. Chest symmetrical. HEART: S1, S2, no S3. No murmurs. No cyanosis or clubbing. No ascites. Pulses: Dorsalis pedis and posterior tibial pulses +1 to +2 both sides. ABDOMEN: Soft. Non-tender. Bowel sounds active. No CVA tenderness. No mass felt. EXTREMITIES: No pedal edema. Full range of motion of all extremities, equal. NEUROLOGIC: No focal deficit. Cranial nerves II through XII are grossly intact. No headache, no double vision or headache. SKIN: Not dry. Intact. Turgor-normal. LYMPHATIC: No palpable lymph nodes/no lymphedema. MUSCULOSKELETAL: Normal joints with no swelling. Muscle tone is normal. LAB REVIEW: 04/15/16 05:15 04/15/16 05:15 04/15/16 05:15: WBC 10.62 H, RBC 4.09 L, Hgb 11.8 L, Hct 37.3 L, MCV 91.2, MCH 28.9, MCHC 31.6 L, RDW Coeff of Lorrie 13.9, Plt Count 289, Immature Gran % (Auto) 0.9, Neut % (Auto) 76.6, Lymph % (Auto) 14.6, [place] % (Auto) 7.4, Eos % (Auto) 0.1, Baso % (Auto) 0.4, Immature Gran # (Auto) 0.1, Neut # 8.1 H, Lymph # 1.6, [place] # 0.8, Eos # 0.0, Baso # 0.0, Sodium 137, Potassium 4.2, Chloride 100, Carbon Dioxide 28, Anion Gap 13.2, BUN 14, Creatinine 1.05, Estimated GFR (MDRD ) 67.00, BUN/Creatinine Ratio 13.33, Glucose 61 L, Calcium 8.9, Total Bilirubin 1.52 H, AST 12 L, ALT < 6 L, Alkaline Phosphatase 95, B-Natriuretic Peptide 767 H, Total Protein 6.6, Albumin 3.1 L, Globulin 3.5, Albumin/Globulin Ratio 0.89 ASSESSMENT: 1. Atrial fibrillation with normal ventricular response. No acute changes on EKG or cardiac markers. 2. Pneumonia treated with antibiotics responding well. 3. Diabetes mellitus, well-controlled. 4. Anemia. RECOMMENDATIONS/PLAN: 1. Echocardiogram today to evaluate LV function and valvular structures. 2. Decadron 1 cc now and 1 cc tomorrow a.m. 3. The patient's BNP is 767 but no evidence of CHF. I agree with present management. 4. Dysphagia study today. Plan and coordination of the patient's care discussed in the presence of Regional Transportation Manager and Nurse. CONDITION: Stable SCRIBED BY: BREENICE SOFIA Finishing Machine Operator Automatic scribed while in presence of service performed by Dr. NIC GARCIA on 04/15/16 (0800)
[2016-04-15] MEDS ORDERED: ATARAX PO STA ×2 (16:27)
[2016-04-15] MEDS: ROCEPHIN 1 GM in SODIUM CHLORIDE 100 ML IV SCH (21:44)
[2016-04-16] MEDS ORDERED: INFUVITE ADULT IV ONE (00:30)
[2016-04-16] MEDS ORDERED: POTASSIUM CHLORIDE 20 MEQ VIAL-ADDITIVE ONLY IV ONE (00:31)
[2016-04-16] MEDS: POTASSIUM CHLORIDE 20 MEQ VIAL-ADDITIVE ONLY 20 MEQ, INFUVITE ADULT 10 ML in SODIUM CHL... IV SCH (00:40)
[2016-04-16] MEDS: LASIX IVP SCH (06:32)
[2016-04-16] MEDS: OXYCODONE PO PRN (06:59)
[2016-04-16] MEDS: SPIRIVA IH SCH (09:16)
[2016-04-16] MEDS: JANUVIA PO SCH (09:17)
[2016-04-16] MEDS: MUCINEX PO SCH (09:17)
[2016-04-16] MEDS: ELIQUIS PO SCH (09:17)
[2016-04-16] MEDS: PROTONIX PO SCH (09:18)
[2016-04-16] MEDS: LOPRESSOR PO SCH (09:18)
[2016-04-16] MEDS: FLOMAX PO SCH (09:18)
[2016-04-16] MEDS: CORDARONE PO SCH (09:18)
[2016-04-16] MEDS: COZAAR PO SCH (09:18)
[2016-04-16] MEDS: LIPITOR PO SCH (09:19)
[2016-04-16] MEDS: FERROUS SULFATE PO SCH (09:19)
[2016-04-16] MEDS: VITAMIN B-12 IM SCH (09:19)
[2016-04-16] MEDS: MAG-OX PO SCH (09:19)
[2016-04-16] MEDS: SINEMET 25-100 PO SCH ×2 (09:19→16:03)
[2016-04-16] MEDS: DECADRON 4 MG/ML SDV IM SCH (09:20)
[2016-04-16 10:28] VITALS: BP 97/50; TEMP 97.4
--- NOTE | 2016-04-16 11:07 | CONS ---
DATE OF CONSULTATION: 04/15/16 REASON FOR CONSULTATION: Evaluation for arrhythmias HISTORY OF PRESENT ILLNESS: The patient is an 85 year old white male was hospitalized by Dr. Roman from the clinic with history of pneumonia and diabetes. The patient has been treated with IV antibiotics and has responded well. His EKG telemetry strips reviewed and the patient has atrial fibrillation with normal ventricular response, atrial flutter. The patient is laying flat with no distress. Chest x-ray showing coronary artery disease, mild cardiomyopathy. REVIEW OF SYSTEMS: CONSTITUTIONAL: No night sweats. Fatigue. No fever or chills. HEENT: Eyes: No visual changes. No eye pain. No eye discharge. ENT: No runny nose. No epistaxis. No sinus pain. No sore throat. No odynophagia. No ear pain. No congestion. RESPIRATORY: Cough with lose clear mucus, no congestion. No hemoptysis. CARDIOVASCULAR: No angina symptoms. No CHF symptoms. No atypical chest pain for CAD. No palpitations. No shortness of breath. GASTROINTESTINAL: No abdominal pain. No nausea or vomiting. No diarrhea or constipation. No hematemesis. No hematochezia. GENITOURINARY: No urgency. Frequency. No dysuria. No hematuria. No obstructive symptoms. No discharge. No pain. No significant abnormal bleeding. Urinary incontinence at times. MUSCULOSKELETAL: No musculoskeletal pain. No joint swelling. Lumbar pain. NEUROLOGICAL: No headache. No neck pain. No syncope. No seizures. No dizziness. PSYCHIATRIC: Anxious. No depression. No suicidal thoughts. No homicidal thoughts. SKIN: Warm/dry, No rash. No lesions. No wounds. ENDOCRINE: Weight loss. No weight gain. HEMATOLOGIC/LYMPHATIC: No anemia. No purpura. No petechiae. No prolonged or excessive bleeding. No palpable lymph nodes. MEDICATIONS: Amiodarone Eliquis Lipitor Calcium with D Sinemet Ferrous Sulfate Amaryl [place] Zestril Mag Oxide Metformin Lopressor Protonix Januvia Flomax Spiriva ALLERGIES: No known drug allergies PAST MEDICAL HISTORY/PAST SURGICAL HISTORY: Hypertension Diabetes Anemia Congestive heart failure Atrial fibrillation Coronary artery disease Status post CABG COPD Prostate cancer Parkinson's disease Esophageal stricture with dilation (numerous times- Dr. Jhaveri) Ureteral stent Anxiety SOCIAL/PERSONAL/FAMILY HISTORY: No smoking. No alcohol. . Family History: Sister Leukemia, Father Prostate cancer, Mother Cardiac, diabetes mellitus and lung cancer. PHYSICAL EXAMINATION: GENERAL: The patient is confused but alert. VITAL SIGNS: Pulse 54, blood pressure 132/66 and pulse ox 95% on 2 liters. HEENT: Head normocephalic, atraumatic. Eyes: Extraocular muscles are intact. Pupils are equal, round and reactive to light and accommodation. Ears: No lesions. Nose appeared normal. Throat: No exudate or erythema. NECK: Supple. No JVD, no carotid bruit. No lymphadenopathy or thyromegaly. LUNGS: Decreased breath sounds but clear to auscultation. Percussion note normal. Chest symmetrical. HEART: S1, S2, no S3. No murmurs. No cyanosis or clubbing. No ascites. Pulses: Dorsalis pedis and posterior tibial pulses +1. ABDOMEN: Soft. Nontender. Bowel sounds active. No CVA tenderness. No mass felt. EXTREMITIES: No edema. Full range of motion of all extremities, equal. NEUROLOGIC: No focal deficit. Cranial nerves II through XII are grossly intact. No headache, no double vision or headache. SKIN: Not dry. Intact. Turgor - normal. LYMPHATIC: No palpable lymph nodes/no lymphedema. MUSCULOSKELETAL: Normal joints with no swelling. Muscle tone is normal. LABS: Chest CT- stable to slightly worsening micronodular infiltrate LLL and lingula cardiomegaly, coronary artery disease and emphysema. EKG atrial fibrillation. BNP 721, WBC 9.8 and A1c 6.1. ASSESSMENT: 1. Atrial fibrillation- normal v-response 2. CABG 3. COPD 4. Pneumonia 5. Dementia PLAN: 1. Echocardiogram 2. 1cc Decadron IM today 3. 1cc Decadron IM AM 4. No arrhythmias like 2nd degree Av Block 5. Atrial fibrillation on telemetry 6. Care discussed with attending. Thanks for referral SPENSER
--- NOTE | 2016-04-16 14:44 | DI ---
EXAM: Single frontal view of the chest HISTORY: Cough. COMPARISON: CT chest 04/13/2016 FINDINGS: Cardiomediastinal silhouette is unchanged and mildly enlarged with intact sternotomy wires and aortic atherosclerotic disease. There is no pneumothorax. There is minimal blunting of the le ft costophrenic angle with minimal nodular ground-glass. Findings are consistent with recent CT gisella [address]. The right lung appears clear. The osseous structures are unremarkable. IMPRESSION: Small left effusion and adjacent nodular ground-glass suggestive of small airways infec tion/inflammation. This is similar in appearance to director cardiac image on CT chest 04/13/2016.
--- NOTE | 2016-04-17 10:08 | CONS ---
DATE OF SERVICE: 04/16/16 CONSULT FOLLOWUP SUBJECTIVE: The patient is an 85 year old white male hospitalized with pneumonia and diabetes. I was consulted because of the patient's rhythm and there was some question of 2nd degree AV block. The patient's rhythm strips showed atrial fibrillation with normal ventricular response in fact in the slow side. The patient's pneumonia is being treated and seems to be resolving. The is in the room and she is happy with his progress. REVIEW OF SYSTEMS: CONSTITUTIONAL: No night sweats. No fatigue, malaise, lethargy. No fever or chills. HEENT: Eyes: No visual changes. No eye pain. No eye discharge. ENT: No runny nose. No epistaxis. No sinus pain. No sore throat. No odynophagia. No ear pain. No congestion. RESPIRATORY: No cough, no congestion. No hemoptysis. CARDIOVASCULAR: No angina symptoms. No CHF symptoms. No atypical chest pain for CAD. No palpitations. No shortness of breath. GASTROINTESTINAL: No abdominal pain. No nausea or vomiting. No diarrhea or constipation. No hematemesis. No hematochezia. GENITOURINARY: No urgency. No frequency. No dysuria. No hematuria. No obstructive symptoms. No discharge. No pain. No significant abnormal bleeding. MUSCULOSKELETAL: No musculoskeletal pain. No joint swelling. No arthritis. NEUROLOGICAL: No headache. No neck pain. No syncope. No seizures. No dizziness. PSYCHIATRIC: Not anxious. No depression. No suicidal thoughts. No homicidal thoughts. SKIN: No rash. No lesions. No wounds. ENDOCRINE: No unexplained weight loss. No weight gain. HEMATOLOGIC/LYMPHATIC: No anemia. No purpura. No petechiae. No prolonged or excessive bleeding. No palpable lymph nodes. PHYSICAL EXAMINATION: GENERAL: The patient is confused. VITAL SIGNS: Temperature 96.9, pulse 52, respiratory 20, blood pressure 154/67 and pulse ox 96% HEENT: Head normocephalic, atraumatic. Eyes: Extraocular muscles are intact. Pupils are equal, round and reactive to light and accommodation. Ears: No lesions. Nose appeared normal. Throat: No exudate or erythema. NECK: Supple. No JVD, no carotid bruit. No lymphadenopathy or thyromegaly. LUNGS: Decreased breath sounds but clear to auscultation. Percussion note normal. Chest symmetrical. HEART: S1, S2, no S3. No murmurs. No cyanosis or clubbing. No ascites. Pulses: Dorsalis pedis and posterior tibial pulses +1 to +2 both sides. ABDOMEN: Soft. Nontender. Bowel sounds active. No CVA tenderness. No mass felt. EXTREMITIES: No edema. Full range of motion of all extremities, equal. NEUROLOGIC: No focal deficit. Cranial nerves II through XII are grossly intact. No headache, no double vision or headache. SKIN: Not dry. Intact. Turgor - normal. LYMPHATIC: No palpable lymph nodes/no lymphedema. MUSCULOSKELETAL: Normal joints with no swelling. Muscle tone is normal. LABS: hgb 11.8, hct 37, WBC 10,600 normal differential, creatinine 1, BUN 14, potassium 4.2, BNP 767 ASSESSMENT: 1. Atrial fibrillation with controlled ventricular response 2. History of CHF 3. Chronic lung disease 4. Pneumonia RECOMMENDATIONS: 1. Continue and agreed with the present management for pneumonia 2. Continue Amiodarone, Eliquis, Lisinopril and Metformin and Metoprolol CONDITION: Stable MTDD
--- NOTE | 2016-04-17 10:09 | PN ---
04/13/16: Level 5 04/14/16: Intermediate MTDD
--- NOTE | 2016-04-17 13:31 | DS ---
PATIENT IDENTIFICATION: 85 year old male who was seen at the office by me on 04/13/2016 for the first time. This patient was a new patient to establish care. The patient's general appearance appears to be sick. Physical examination revealed the patient has cognitive problem, somewhat restless. The lungs had coarse rales in both sides in the lower half with diminished breath sounds. The heart is irregular with good tones. This patient had a history of atrial fibrillation. The patient's past history consisted of hypertension, diabetes, anemia, myocardial infarction, congestive heart failure, atrial fibrillation, coronary artery disease, status post bypass, COPD, history of prostatic carcinoma, Parkinson's disease, urethral dilatation, esophageal stricture dilatation, history of migraine, history of anxiety and history of ureteral stent. HOSPITAL COURSE: The patient, while in the hospital, had the following work- up. CBC times two which showed mild to moderate anemia. Arterial blood gases with FIO2 21, PO2 62, PCO2 41, pH 7.402, oxygen saturation 91, bicarbonate 25.9 , total CO2 27. The electrolytes were normal times two and the GFR is 60 and 67. Initial blood sugar on 04/13/16 was 104 and on 04/15/16 was 61. The patient's medication, Amaryl, was discontinued, as well as Metformin. The patient also was on Januvia at 100 mg for the diabetes. He is on Eliquis 2.5 mg for the atrial fibrillation twice a day. The patient's imaging studies, a CT without contrast showed stable to slightly worsening micronodular infiltrate within the left lower lobe and lingula. Follow up recommended in the next several months. Debris or mucus plugging in the bilateral main bronchi greater on the left. Emphysema, mild cardiomegaly, cholelithiasis and small pleural effusion. A head CT was done, since the was concerned about the patient having a stroke because of his behavior. The CT did not show any acute intracranial pathology. The radiologist felt that the patient has a significant involutional changes to his brain. A chest x-ray done today showed no significant change from the time he was admitted on 04/13/2016. This patient received Rocephin 1 gram IV daily and Zithromax 500 mg daily for three days. The patient was afebrile and remained afebrile throughout the hospital stay. The blood pressure on admission was slightly higher at 154/62 left, 152/ 60 right and the blood pressure had been fluctuating as high as 174/102 on 04/14, but did go down to 117/56 on the same day and the blood pressure on 04/16 in the community health navigator hours, 6 o'clock, was 154/67 and at 10 o'clock was down to 97/50. No further readings at this time. The patient's oxygen saturation is 92 at 2 Liters. The patient at discharge is alert, ambulatory with movement of extremities. LUNGS: Breath sounds are diminished with some rales at both bases. HEART: Audible and irregular. ABDOMEN: Nontender. This patient was going to be discharge to [facility] to receive treatment for the aspiration. This patient was tested and indeed the patient does aspirate with thin liquids. The diet will be according to what was advised. This patient was seen by Dr. Velasquez, Welder Fitter, because of atrial fibrillation. He recommended an echocardiogram, as well as Decadron 4 mg IM for two days. The BNP was slightly higher, but no evidence of congestive heart failure. RECOMMENDATIONS: 1. Diet-Lorane thick liquids. The patient can have regular diet texture and nectar thick liquids via open cup. Lingual exercises to be done three times a week. This will be accomplished while at the senior living. 2. This patient is going to be discharged to [facility]. The patient's was agreeable. There was no place for them at [facility]. 3. The following medications or instructions are: 1. Diet as recommended, regular diet with thickened nectar liquids. 2. Sinemet 25/100 one tablet three times a day. 3. Flomax 0.4 mg daily. 4. Amiodarone 200 mg daily. 5. Eliquis 2.5 mg twice daily. 6. Lipitor 10 mg daily. We will look into this at age 85 whether it would be helpful to him. 7. Lopressor 45 mg daily will be given at 12.5 twice a day, since Lopressor Tartrate is short acting. 8. Mag Ox 400 mg daily. 9. Protonix 40 mg daily before a meal. 10. Spiriva one cap daily inhalation. 11. Mucinex LA 1200 mg twice daily. 12. Losartan 25 mg twice daily. 13. Vitamin B12 1,000 mcg IM weekly. 14. Lasix 20 mg early a.m. before breakfast on an empty stomach. 15. Omnicef 300 mg twice a day for 5 days. 4. Fasting Renal panel weekly times four weeks. If the blood sugar remains reasonable that no resumption of the diabetic medications will be given. FINAL DIAGNOSES: 1. LEFT LOWER LOBE PNEUMONITIS 2. DEBRIS BILATERAL MAIN BRONCHUS 3. CHOLELITHIASIS 4. SENILE DEMENTIA 5. PARKINSON'S DISEASE 6. DIABETES MELLITUS TYPE II, QUESTIONABLE 7. ATRIAL FIBRILLATION ON MEDICATION 8. HISTORY OF CONGESTIVE HEART FAILURE 9. HISTORY OF CORONARY ARTERY DISEASE, STATUS POST BYPASS 10. HISTORY OF PROSTATIC CARCINOMA 11. HISTORY OF ESOPHAGEAL STRICTURE, DILATATION 12. HISTORY OF URETERAL DILATATION WITH STENT TIMES TWO 13. HYPERTENSION, CONTROLLED. PROGNOSIS: Guarded to poor. MTDD
--- NOTE | 2016-04-20 07:26 | ECHO2D ---
Date of Exam: 04/16/2016 Ordering Physician: DR. MORALES - [facility] Reason for Echo: CORONARY ARTERY DISEASE, CARDIOMEGALY M-Mode Normal Adult Results LV Dimensions Normal Adult Results AoV Opening excursions >1.6 >1.6 LVEDD-base- 3.5-5.8 5.3 Ao root dimensions 2.0-3.7 3.6 LVESD-base- 3.1-4.6 L. Atrium dimensions 1.9-3.8 4.5 Post. Wall thickness 0.8-1.1 1.1 IV septum (thickness) 0.7-1.2 1.2 Post. Wall excursion 0.72-1.3 NORMAL Septal motion Systolic motion R. Ventricular cavity 1.5-2.0 3.0 LVEF 60% 50% Paradoxical septal wall motion YES 2-D :MILD PARADOXICAL SEPTAN WALL MOTION, NO EFFUSION, NO THROMBUS, VALVES, NORMAL, ENLARGED LEFT ATRIAL CAVITY, ENLARGED RIGHT VENTRICLE CAVITY M-MODE: MV: NORMAL AV: NORMAL TV: NORMAL PV: CHAMBER SIZE: ENLARGED RIGHT VENTRICLE AND LEFT ATRIAL CAVITIES WALL MOTION: PARADOXICAL SEPTAL MOTION PERICARDIUM: NORMAL INTERPRETATION: 1. BORDERLINE LEFT VENTRICULAR HYPERTROPHY 2. ENLARGED LEFT ATRIAL AND RIGHT VENTRICLE CAVITIES 3. PARADOXICAL SEPTAL WALL MOTION 4. EVIDENCE OF PULMONARY HYPERTENSION MTDD
--- NOTE | 2016-06-03 11:45 | PN ---
DATE OF VISIT: 04/15/2016 The patient, today, at 6 p.m. on 04/15/2016 showed a temperature of 97.8, pulse of 65, blood pressure 126/66, respiratory rate 18, oxygen saturation 98 at 2 liters per nasal oxygen. The patient does have atrial fibrillation. This patient was admitted to the hospital because of cough and gurgling with rales in both lung thakkar. He does follow verbal commands and does not seem to be in acute distress and no cyanosis. HEART: The heart sounds are of good volume and irregular. Blood sugar was elevated at the office. This patient was admitted because of cough and rales with a history of pneumonia, recent. He also had fallen several times. The patient's head CT on 04/14/2016 showed no acute intracranial processes, but did show significant involutional changes, atrophy. Labs done on 04/15/16 showed a WBC slightly elevated at 10,620, hemoglobin and hematocrit is below normal at 11.8 and 37.3 respectively. Differential with no bands. Arterial blood gases on admission showed moderate hypoxemia. Chemistry showed a slightly increased BNP 767 from 721 on admission. 25 hydroxy vitamin D is below normal at 14.5 and PSA was 2.7. The patient was treated with Zithromax 500 mg IV daily, as well as Ceftriaxone 1 gram IV daily. Home medications were continued consisting of Ferrous sulfate , Metformin, Sinemet 25/100, Eliquis. Lasix 20 mg IV was given on 04/13/2016 because of the elevated BNP, as well as bilateral rales. Amiodarone, Lipitor, Metoprolol, Pantoprazole, Spiriva were continued. He also was placed on Losartan 50 mg daily, as well as B12 injection 1 cc daily IM. The patient seemed to be feeling better today and again he was afebrile ever since admission. The chest CT on admission showed worsening micronodular infiltrate within the left lower lobe and lingula. Also some mucus plugs. This patient may have some aspiration from time to time. He also was noted to have cholelithiasis during that examination. The patient seemed to have improved and most likely will be continued on these medications. The patient had an echocardiogram done by the edi consultant showing mild paradoxical septal wall motion, no effusion, no thrombi in the valves. Ejection fraction is 50%. There is some evidence of pulmonary hypertension. Borderline left ventricular hypertrophy and enlarged left atrial and right ventricular cavities. The patient was seen by Dr. Velasquez, [employer] in consultation. He did order Decadron at the time he saw him on the , as well as ordering an echocardiogram. CONDITION: Stable. PROGNOSIS: Poor. MTDD
== END 2016-04-16 18:05 | DRG 194 ==
LOC: MEDSURG A 16:48
PROVIDERS: ADMIT General Practice; ATTEND General Practice
DX: J18.9 Pneumonia, unspecified organism (principal); T17.590A Other foreign object in bronchus causing asphyxiation, initial encounter; J90 Pleural effusion, not elsewhere classified; I51.7 Cardiomegaly; K80.20 Calculus of gallbladder without cholecystitis without obstruction; F03.90 Unspecified dementia, unspecified severity, without behavioral disturbance, psychotic disturbance, mood disturbance, and anxiety; G20 Parkinson's disease; K22.2 Esophageal obstruction; E11.9 Type 2 diabetes mellitus without complications; I48.91 Unspecified atrial fibrillation; I10 Essential (primary) hypertension; D64.9 Anemia, unspecified; I50.9 Heart failure, unspecified; I25.10 Atherosclerotic heart disease of native coronary artery without angina pectoris; J43.9 Emphysema, unspecified; R29.6 Repeated falls; Z95.1 Presence of aortocoronary bypass graft; Z87.891 Personal history of nicotine dependence; Z79.01 Long term (current) use of anticoagulants; Z79.899 Other long term (current) drug therapy; Z85.46 Personal history of malignant neoplasm of prostate
CPT/HCPCS: 36415; 80053; 80061; 81001; 82150; 82607; 82652; 82803; 82962; 83036; 83690; 83880; 84153; 84443; 85025; 87070; 93005; 93010; 99223; 99232; 99239

== ENCOUNTER 2016-05-02 14:50 | Emergency (ER) ==
[2016-05-02 14:59] VITALS: BP 142/70; TEMP 97.2; BMI 20.1
[2016-05-02] MEDS ORDERED: DUONEB NEB STA (15:12)
--- NOTE | 2016-05-02 15:13 | ED.PDOC ---
General ED Provider: Dr. THEO CHOPRA Chief Complaint: Non-specific Complaint Stated Complaint: patient was sent from retirement with increased congestion and thick green sputum and low grade temp. patient was sent to see if he aspirated. patient's states that patient got choked at breakfast this morning on one bite and has coughed clear sputum since. states when he gets choked he doesn't eat for 2-3 days. she also states that patient has aspirated one time before. Time Seen by Physician: 15:11 Mode of Arrival: Wheelchair Information Source: Patient, Family, Residential Exam Limitations: No limitations [facility] and Triage Documentation Reviewed and Agree: Yes Review of Systems - Review Of Systems Constitutional: Reports: Loss of appetite Eyes: Reports: No symptoms Ears, Nose, Mouth, Throat: Reports: No symptoms (but decreased hearing ) Respiratory: Reports: Cough, Short of air GI: Reports: Difficulty swallowing : Reports: No symptoms Musculoskeletal: Reports: No symptoms Skin: Reports: No symptoms Neurological: Reports: Anxiety, Other (tremors, [place] ) Endocrine: Reports: No symptoms Hematologic/Lymphatic: Reports: No symptoms All Other Systems: Reviewed and Negative Past Medical History - Past Medical History Previously Healthy: No Endocrine: Reports: DM 2 Cardiovascular: Reports: Hypertension, CHF, A-Fib Respiratory: Reports: COPD Hematological: Reports: None Gastrointestinal: Reports: None Genitourinary: Reports: None Neuro/Psych: Reports: Parkinson's Musculoskeletal: Reports: None Cancer: Reports: Colon Other Pertinent Past Medical History: 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 - Surgical History General Surgical History: Reports: CABG - Family History Family History: Reports: Unknown - Social History Smoking Status: Former smoker Hx Substance Use: No Alcohol Screening: None Physical Exam - Physical Exam Appearance: Ill-appearing Ill-appearing: Mild Respiratory: Breath sounds diminished Cardiovascular: RRR, Pulses normal, No rub, No murmur GI/: Soft, Nontender, No masses, Bowel sounds normal, No Organomegaly Musculoskeletal: Normal strength, ROM intact, No edema, No calf tenderness Skin: Warm, Dry, Normal color Neurological: Alert (tremors ) Psychiatric: Anxious Interpretation - Radiology Interpretation Radiology Interpretation By: Radiologist Radiology Results: Negative Exam Interpreted: CT Scan (improving areation on the left lower lobe ) Physician Notification - Case Discussed Physician Notified: Dr Roman Time of Notification: 17:00 (Does not meet criteria for admission. Ct showe infiltrate better. lungs clear and stat normal. ) Critical Care Note - Critical Care Note Total Time (mins): 0 Course - Course Hematology/Chemistry: 05/02/16 15:25 05/02/16 15:25 Orders, Labs, Meds: Lab Review 05/02/16 05/02/16 15:12 15:25 WBC 11.83 H RBC 4.53 L Hgb 12.7 L Hct 40.2 L MCV 88.7 MCH 28.0 MCHC 31.6 L RDW Coeff of Lorrie 14.6 Plt Count 216 Immature Gran % (Auto) 1.0 Neut % (Auto) 81.4 Lymph % (Auto) 8.4 L Frederick % (Auto) 8.6 Eos % (Auto) 0.3 Baso % (Auto) 0.3 Immature Gran # (Auto) 0.1 Neut # 9.6 H Lymph # 1.0 Frederick # 1.0 Eos # 0.0 Baso # 0.0 Puncture Site R brach O2 Saturation 94.0 L ABG pH 7.43 ABG pCO2 43.0 ABG pO2 70.0 L ABG HCO3 29 H ABG Total CO2 30 H ABG Base Excess 5 H Jerad Test + FiO2 % 21.0 Sodium 135 L Potassium 4.5 Chloride 94 L Carbon Dioxide 29 Anion Gap 16.5 BUN 25 H Creatinine 1.45 H Estimated GFR (MDRD) 46.00 BUN/Creatinine Ratio 17.24 Glucose 214 H Lactic Acid 11.3 Calcium 9.2 Total Bilirubin 1.71 H AST 29 ALT 45 Alkaline Phosphatase 123 H Total Protein 7.1 Albumin 3.5 Globulin 3.6 Albumin/Globulin Ratio 0.97 Procalcitonin 0.07 Orders Category Date Time Status ABG DRAW REQUEST Stat CARDIO 05/02/16 15:12 Completed EKG-(ED ONLY) Stat CARDIO 05/02/16 15:12 Completed NEBULIZER TREATMENT Stat CARDIO 05/02/16 15:12 Completed ED APPLY O2 .ONCE EMERGENCY 05/02/16 15:10 Active ED SKYDIVING INSTRUCTOR APPLIED .ONCE EMERGENCY 05/02/16 15:10 Active ED VITAL SIGNS Q1HR EMERGENCY 05/02/16 15:10 Active ABG Stat LAB 05/02/16 15:12 Completed BLOOD CULTURE Stat LAB 05/02/16 15:25 Received CBC W/ AUTO DIFF Stat LAB 05/02/16 15:25 Completed COMPREHENSIVE METABOLIC PANEL Stat LAB 05/02/16 15:25 Completed LACTIC ACID Stat LAB 05/02/16 15:25 Completed PROCALCITONIN Stat LAB 05/02/16 15:25 Completed Ipratropium/Albuterol Neb [Duoneb] MEDS 05/02/16 15:12 Discontinued 1 vial NEB ONCE STA CHEST, 1V AP ONLY Stat RADS 05/02/16 15:[address] CHEST W/O CONTRAST Stat RADS 05/02/16 16:07 Completed Medications Discontinued Medications Generic Name Dose Route Start Last Admin Trade Name Freq PRN Reason Stop Dose Admin Albuterol/Ipratropium 1 vial 05/02/16 15:12 05/02/16 16:07 Duoneb NEB 05/02/16 15:13 1 vial ONCE STA Administration Vital Signs: Temp Pulse Resp BP Pulse Ox 05/02/16 14:53 97.2 F L 86 20 142/70 H 94 L Departure - Departure Time of Disposition: 17:30 Disposition: DISCH/TSF TO [facility] Discharge Problem: Cough Instructions: Cold Symptoms (ED) Condition: Good Pt referred to PMD for follow-up: Yes Additional Instructions: Increase Trazodone to 50mg qhs Follow up with PCP in 3 days Allergies/Adverse Reactions: Allergies No Known Allergies Allergy (Unverified 05/02/16 15:06) Home Medications: Ambulatory Orders Amiodarone HCl 200 mg PO DAILY 04/07/16 Apixaban [Eliquis] 2.5 mg PO BID 04/07/16 Atorvastatin Calcium [Lipitor] 10 mg PO DAILY 04/07/16 Magnesium Oxide [Magnesium] 400 mg PO DAILY 04/07/16 Metoprolol Tartrate [Lopressor] 12.5 mg PO BID 04/07/16 Tamsulosin HCl [Flomax] 0.4 mg PO DAILYWM 04/07/16 Triamcinolone Acetonide [Triamcinolone Acetonide 0.025% Cream] 15 gm TP DIRECTED 04/07/16 Bisacodyl [Dulcolax] 10 mg RC PRN PRN #30 tab-cap 04/30/16 Carbidopa/Levodopa [Sinemet 25-100] 1 tab PO TID 05/02/16 Cholecalciferol (Vitamin D3) [Vitamin D] 2,000 unit PO DAILY 05/02/16 Cyanocobalamin (Vitamin B-12) [Cyanocobalamin Injection] 1,000 mcg IJ WEEKLY Furosemide [Lasix Tab] 20 mg PO QDAC 05/02/16 Guaifenesin [Mucinex] 1,200 mg PO BID 05/02/16 Hydrocodone Bit/Acetaminophen [[place] 5-325] 1 tab PO BEDTIME 05/02/16 Hydrocodone/Acetaminophen [Hydrocodon-Acetaminophen 5-325] 1 each PO Q12H PRN Ketoconazole [Nizoral 2% Shampoo] 1 applic TP 2 TIMES PER WEEK 05/02/16 Losartan Potassium [Cozaar] 25 mg PO DAILY 05/02/16 Magnesium Hydroxide [Milk of Magnesia] 30 ml PO BID PRN 05/02/16 Pantoprazole Sodium [Protonix] 40 mg PO DAILY 05/02/16 Polyethylene Glycol 3350 [Miralax] 17 gm PO DAILY 05/02/16 Tiotropium [place] [Spiriva] 1 cap IH DAILY 05/02/16 Trazodone HCl 25 mg PO BEDTIME 05/02/16 Disposition Discussed With: Patient
[2016-05-02 15:35] LABS: BASOPHILS % (AUTO) 0.3 % (0.0-3.0); EOSINOPHILS % (AUTO) 0.3 % (0.0-7.0); HEMATOCRIT 40.2 % (42.0-52.0); HEMOGLOBIN 12.7 g/dl (14.0-18.0); LYMPHOCYTES % (AUTO) 8.4 (10.0-50.0); MEAN CORPUSCULAR HGB CONC 31.6 (31.8-35.4); MEAN CORPUSCULAR VOLUME 88.7 fl (80.0-94.0); MONOCYTES % (AUTO) 8.6 (0-10); NEUTROPHILS # (AUTO) 9.6 K/ul (2.0-6.9); NEUTROPHILS % (AUTO) 81.4; PLATELET COUNT 216 10^3/uL (140-440); RED BLOOD COUNT 4.53 10^6/ul (4.70-6.10); WHITE BLOOD COUNT 11.83 K/ul (4.2-10.2)
[2016-05-02 15:43] LABS: ABG BASE EXCESS 5 (-2.0-2.0); ABG HCO3 29 (22.0-26.0); ABG PH 7.43 (7.35-7.45); ABG TCO2 30 (22.0-28.0)
--- NOTE | 2016-05-02 15:43 | DI ---
EXAM: Single view chest COMPARISON: Chest Xray from 04/16/2016 HISTORY: Fever cough possible aspiration FINDINGS: There is some subtle increased density over the left cardiac silhouette with some minimal obscuration of the medial hemidiaphragm. This could represent perhaps some early infiltrate or aspi ration or overlapping shadows. There is no definite focal lobar consolidation. There is no large e ffusion. There has been prior sternotomy. There is calcific atherosclerosis of the aorta. No acu te soft tissue or osseous abnormalities. IMPRESSION: Possible retrocardiac airspace opacity on the left as described versus overlapping shado ws. If clinically indicated and feasible a PA and lateral view would clarify this.
[2016-05-02 15:54] LABS: ALBUMIN 3.5 g/dL (3.4-5.0); ALBUMIN/GLOBULIN RATIO 0.97; ANION GAP 16.5; BILIRUBIN,TOTAL 1.71 mg/dL (0.00-1.20); BUN/CREATININE RATIO 17.24; CALCIUM 9.2 mg/dL (8.2-10.2); CREATININE 1.45 mg/dL (0.60-1.10); POTASSIUM 4.5 mmol/L (3.5-5.1); TOTAL PROTEIN 7.1 g/dL (5.8-8.1)
--- NOTE | 2016-05-02 17:01 | CT ---
EXAM: CT chest without contrast TECHNIQUE: Helical CT of the chest was performed without contrast with coronal and sagittal reconst ructions. COMPARISON: CT chest from 04/13/2016. And Chest x-ray from earlier today HISTORY: Shortness of breath FINDINGS: On the previous examination there was fairly extensive infiltrate in the left lower lobe with a modest sized effusion. Most of that is resolved on today's examination. The possible left re trocardiac density seen on today's chest x-ray does correlate with some residual infiltrate in the l eft medial base. The effusion has resolved. There is fairly extensive emphysematous changes in the l satish apices. There is no lobar consolidation or mass lesion or failure. There is no pathologic medi astinal or hilar adenopathy. There is no pathologic supraclavicular or axillary lymph nodes. The t hyroid gland is unremarkable. There is very advanced atherosclerosis. There is coronary calcificat ion. There is no acute osseous abnormality. There has been prior sternotomy. Upper abdomen reveal s cholelithiasis with no acute inflammation. There is a probable renal cyst arising from the upper pole of the left kidney partially visualized. Also noted is an incidental gastric diverticulum. IMPRESSION: 1. Interval improved aeration in the left lower lobe as described with some residual left basilar i nfiltrate with resolution of effusion. 2. Emphysematous changes in the lung apices. 3. Cholelithiasis. 4. Incidental gastric diverticulum. 5. Advanced atherosclerosis
== END 2016-05-02 17:55 ==
LOC: ED 14:50
DX: R05 Cough (principal); R68.89 Other general symptoms and signs; R09.89 Other specified symptoms and signs involving the circulatory and respiratory systems; G20 Parkinson's disease; E11.9 Type 2 diabetes mellitus without complications; I10 Essential (primary) hypertension; Z95.1 Presence of aortocoronary bypass graft; Z79.899 Other long term (current) drug therapy; Z85.038 Personal history of other malignant neoplasm of large intestine
CPT/HCPCS: 36415; 80053; 82803; 83605; 84145; 85025; 87040; 93005; 93010; 94640; 99283